=== PATIENT | female | born 1970 | race Caucasian/White ===

== ENCOUNTER 2020-06-21 09:19 | Outpatient (RCR) | payer OTHER, SELFPAY ==
--- NOTE | 2020-06-21 10:52 | PTOPEVAL ---
PHYSICAL THERAPY EVALUATION AND PLAN OF CARE 06-21-20 Thank you for referring Elsie Owusu to [facility], for the diagnosis of lymphedema. Elsie is scheduled to be seen for therapy? 3 x/week for 4 weeks. Please review, sign, date and return this plan of care CHRISTEL. I agree with and certify that the following plan of care is medically necessary. Referring Physician Date Attending Provider: Bailey Linares NP PT Outpatient Evaluation Document 06/21/20 09:35 RUEL (Rec: 06/21/20 10:52 RUEL [id number]) Outpatient Past Medical History Past Medical History Source of Past Medical History Patient Neurological History Hx Neurological Disorders No Significant History Cardiovascular History Hx Cardiac Disorders No Significant History Respiratory History Hx Asthma Yes: under control, inhaler and shots Gastrointestinal History Hx Appendectomy Yes Genitourinary History Hx Genitourinary Disorders No Significant History Musculoskeletal History Hx Back Pain Yes: chronic back pain/disc issues- injections PRN Endocrine History Hx Endocrine Disorders No Significant History HEENT History Hx HEENT Disorders No Significant History Integumentary History Hx Eczema Yes Reproductive History Hx Hysterectomy Yes: due to questionable cells Other History Hx Cancer Yes: L breast cancer- see lymphedema section Hx Chemotherapy Yes Hx Radiation Therapy Yes Hx Recent Acute Infection Yes Evaluation Information Problem Diagnosis lymphedema Onset Apr 02, 2020 Subjective Information cellulitis L UE Query Text:As Reported By Patient/ Family Prior Level of Function Activity Level (Last 3 Months) Occupation not working outside of home Hand Dominance Right Activity of Daily Living Ability Independent Indoor/Home Mobility Independent Community Mobility Independent Stairs Ability Independent Functional Cognition (Planning, Shopping Independent , Taking Medications) Cooking Yes Cleaning Yes Laundry Yes Shopping Yes Driving Yes Home Setting Home Type House Living Situation With Minor Child,With Spouse Mobility Assistive Devices (Used Last 3 None Months) Comments Additional Prior Level of Function is able to perform all home Comments and self care tasks;
--- NOTE | 2020-06-21 15:34 | PCPTNOTE ---
pt called and stated she talked with her dr office about doing her list of things and they wanted her to have PT assessment at their clinic and then after surgery, can come to [place] for treatment. She called and canceled all of the appointments she had made here and to let us know to d/c her.
--- NOTE | 2020-06-21 15:38 | PCPTNOTE ---
PHYSICAL THERAPY DISCHARGE 06-21-20 Attending Provider: Bailey Linares NP Patient:Elsie Owusu Date of :1970 The PT evaluation was completed this AM for the diagnosis of lymphedema. Mrs. Owusu called this afternoon and canceled all of her appointments, stating she is not to start PT at [place] until after her surgery. And is to go to the dr's PT clinic for pre-op visit. She will be discharged from PT at this time. When additional orders are received post op, PT evaluation will be performed and treatment initiated. Thank you for referring this patient to [facility]. Please review, sign, date and return this discharge summary CHRISTEL. I have been updated about the patient's current status and I agree with discharge from the above service at this time. Referring Physician Date
== END 2020-06-22 10:40 | disposition home or self-care (01) ==
LOC: ANHPT 09:19
PROVIDERS: Visit Provider Nurse Practitioner
DX: I89.0 Lymphedema, not elsewhere classified (principal)
CPT/HCPCS: 97161

== ENCOUNTER → 2022-02-21 07:14 | Outpatient (CLI) | payer OTHER, SELFPAY ==
--- NOTE | ~2022-02-21 | MR_ITS ---
EXAMINATION: MR lumbar spine wo con DATE: 02/21/2022 08:21 INDICATION: Lumbar spondylosis without myelopathy. TECHNIQUE: Magnetic resonance imaging (MRI) of the lumbar spine was performed without intravenous con trast. Sequences included sagittal T2-weighted FSE, sagittal T2-weighted FS FSE, sagittal T1-weighted FSE, and axial T2-weighted FSE. COMPARISON: 01/30/2019 FINDINGS: A degree lumbar dextrocurvature. Sagittal alignment is normal. Vertebral body heights are normal. Int erval progression of now severe disc height loss with associated mild fibrovascular degenerative endp late changes at L5-S1. There is also been interval progression of mild to moderate left-sided predomi nant disc height loss at L3-L4 with additional fibrovascular degenerative endplate changes along the left margins of the endplates. Unchanged mild disc height loss with mild disc desiccation at L2-L3 an d L4-L5. Bone marrow signal is otherwise normal. The conus medullaris terminates at L1. There is norm al signal in the caudal spinal cord. Paravertebral soft tissues are unremarkable. The following disc levels are specifically discussed: T12-L1: Disc is mildly bulging with central annular fissure. There is bilateral facet joint osteoarth ritis. There is no neural foraminal stenosis. There is no central canal stenosis. L1-L2: Disc is mildly bulging with central annular fissure There is mild bilateral facet joint osteoa rthritis. There is no neural foraminal stenosis. There is minimal central canal stenosis. L2-L3: Disc is mildly bulging with left foraminal zone annular fissure. There is mild bilateral facet joint osteoarthritis. There is mild bilateral neural foraminal stenosis. There is mild central canal stenosis. L3-L4: Disc is mildly bulging with superimposed left foraminal zone annular fissure with small disc e xtrusion with disc material extending couple millimeters cephalad to the level of the inferior endpla te of L3 at the level of the foramen. There is mild right and moderate left facet joint osteoarthriti s. There is old right and mild to moderate left neural foraminal stenosis. There is mild central yulissa l stenosis. L4-L5: Disc is mildly bulging with left foraminal zone annular fissure. There is moderate left and se christianne right facet joint osteoarthritis. There is mild bilateral neural foraminal stenosis. There is mi ld central canal stenosis. L5-S1: Annular fissure with disc extrusion extending from foraminal zone to foraminal zone with disc material extending couple millimeters cephalad to the level of the inferior endplate of L5. There is moderate bilateral facet joint osteoarthritis. There is mild bilateral neural foraminal stenosis wit h bilateral moderate extra foraminal stenosis with mild compression of the exiting nerve roots betwee n the inferior margin of the transverse processes and bilateral small L5 inferior endplate osteophyte s. There is no central canal stenosis. IMPRESSION: 1. Interval progression of spondylosis, severe at L5-S1 and mild to moderate in the more cephalad lum bar spine. Reviewed, dictated and finalized at location A. [employer] IMPRESSION: 1. Interval progression of spondylosis, severe at L5-S1 and mild to moderate in the more cephalad lumbar spine.
== END ==
PROVIDERS: PCP Nurse Practitioner; Visit Provider Physician Assistant
DX: M47.26 Other spondylosis with radiculopathy, lumbar region (principal)
CPT/HCPCS: 72148